=== PATIENT | male | born 1965 | race Caucasian/White ===

== ENCOUNTER 2018-01-24 10:08 | Emergency (ER) | payer BC, SELFPAY ==
[2018-01-24 10:15] VITALS: BP 123/81; PULSE 56; RESP 16; O2SAT 100; BMI 24.8
--- NOTE | 2018-01-24 10:28 | DI.RAD.S_ITS ---
PROCEDURE: XR CHEST 2V INDICATIONS: injury, pain TECHNIQUE: 2 views of the chest were acquired. COMPARISON: None. FINDINGS: Surgical changes and devices: None. Lungs and pleura: No pleural effusions or pneumothorax. Lungs are clear. Mediastinum: Mediastinal contours are normal. Heart size is normal. Bones and chest wall: No suspicious bony abnormalities. Soft tissues appear unremarkable. IMPRESSION: No acute cardiopulmonary disease process. Dictated by: Tamara Elizondo MD, PhD on 01/24/2018 at 10:47 Approved by: Tamara Elizondo MD, PhD on 01/24/2018 at 10:50
[2018-01-24 10:56] VITALS: BP 107/68; PULSE 48; RESP 15; TEMP 36.7; O2SAT 98
--- NOTE | 2018-01-24 11:02 | ED.CHESTPAIN ---
HPI - Chest Pain General Chief Complaint: Chest Pain Stated Complaint: INJURY TO CHEST,PAINFUL TO BREATH Time Seen by Provider: 01/24/18 10:41 Source: patient Mode of arrival: ambulatory Limitations: no limitations History of Present Illness HPI narrative: Patient is a 52-year-old male presents with right-sided chest pain. It started a few days ago after he was hit in the chest by his nephew while playing basketball. It hurts every time he breathes and moves. His pain is being controlled with Tylenol and ibuprofen. He has no shortness of breath. It is pinpoint. complaint: chest pain Related Data Allergies Allergy/AdvReac Type Severity Reaction Status Date / Time No Known Drug Allergies Allergy Verified 01/24/18 10:28 Review of Systems Review of Systems All systems reviewed & are unremarkable except as noted in HPI and below Constitutional Denies chills, Denies fever(s), Denies lethargy and Denies weakness Cardiovascular Reports as per HPI, Reports chest pain, Denies dyspnea and Denies dyspnea on exertion Respiratory Denies cough, Denies dyspnea, Denies dyspnea on exertion and Denies wheezing Musculoskeletal Denies back pain, Denies muscle weakness, Denies numbness and Denies tingling Neurologic Denies numbness, Denies tingling and Denies weakness Allergic/Immunologic Denies wheezing [facility] Social History Smoking Status: Never smoker Exam Initial Vital Signs Initial Vital Signs: Vital Signs Pulse Rate 56 L 01/24/18 10:15 Respiratory Rate 16 01/24/18 10:15 Blood Pressure 123/81 H 01/24/18 10:15 Pulse Oximetry 100 01/24/18 10:15 GENERAL: Well-appearing, well-nourished and in no acute distress. HEENT: Head atraumatic,EOMI, pupils reactive, face symmetric, moist mucous membranes CARDIOVASCULAR: Regular rate and rhythm without murmurs, rubs or gallops. Chest pain reproducible around rib for over pectoral muscle. No crepitation. No contusion RESPIRATORY: Breath sounds equal bilaterally, no wheezes rales or rhonchi. ABDOMEN: Soft, nontender. Normoactive bowel sounds all 4 quadrants. No guarding or rebound. EXTREMITIES: Normal range of motion, no clubbing or edema. Neurovascularly intact NEUROLOGICAL: Alert and oriented x4.Normal gait and speech. SKIN: Warm, dry, no laceration, no petechiae, no rashes or lesions. Course Orders Ordered: ED Orders 01/24/18 10:28 CXR [XR chest 2V] Stat Vital Signs - 8 hr 01/24/18 10:15 01/24/18 10:56 Temperature 98.0 F Pulse Rate 56 L 48 L Respiratory Rate 16 15 Blood Pressure 123/81 H Blood Pressure [Right Arm] 107/68 Pulse Oximetry 100 98 MDM - Chest Pain Imaging Data Chest x-ray: Radiologist's impression: PROCEDURE: XR CHEST 2V INDICATIONS: injury, pain TECHNIQUE: 2 views of the chest were acquired. COMPARISON: None. FINDINGS: Surgical changes and devices: None. Lungs and pleura: No pleural effusions or pneumothorax. Lungs are clear. Mediastinum: Mediastinal contours are normal. Heart size is normal. Bones and chest wall: No suspicious bony abnormalities. Soft tissues appear unremarkable. IMPRESSION: No acute cardiopulmonary disease process. Dictated by: Tamara Elizondo MD, PhD on 01/24/2018 at 10:47 Approved by: Tamara Elizondo MD, PhD on 01/24/2018 at 10:50 MDM Narrative Medical decision making narrative: Patient's pain is pinpoint and worse with movement consistent with musculoskeletal pain. X-rays negative for any fractures. Discharge Plan Departure Patient Disposition: Home, Self-Care Clinical Impression: Chest wall contusion, Acute costochondritis Discharge Date/Time: 01/24/18 11:17 Interventions: ED Discharge Assessment Last Done: 01/24/18 11:17 Instructions: Costochondritis Activity Restrictions/Additional Instructions: *You have been diagnosed with costochondritis, chest wall pain *What to do: Ice, 20 min at a time, increase activity as tolerated, expect to be sore for 1-2 weeks *Continue to take medications as directed -Motrin 800 mg every 8 hours if needed for pain *Follow up with your primary care provider in 2-3 days *Return to ER if you should have increasing pain, shortness of breath or any new, worsening or concerning symptoms
--- NOTE | 2018-01-24 11:06 | PC.NURSE ---
Removed off monitor and is dressing. to kenisha and truong
== END 2018-01-24 11:17 | disposition home or self-care (01) ==
PROVIDERS: Emergency Provider Emergency Medicine
DX: S20.219A Contusion of unspecified front wall of thorax, initial encounter (principal); M94.0 Chondrocostal junction syndrome [Tietze]; W21.05XA Struck by basketball, initial encounter
CPT/HCPCS: 71046; 93041; 99283; 99284